=== PATIENT | male | born 2000 | race Hispanic/Latino ===

== ENCOUNTER 2024-02-27 09:11 | Day surgery (SDC) | payer BC ==
[2024-02-26 15:09] VITALS: BMI 27.1
[2024-02-27] MEDS ORDERED: PROPOFOL 20 ML ONE (12:21)
[2024-02-27] MEDS ORDERED: fentaNYL 50 mcg/mL 1 mL Vial ONE ×4 (12:22→16:01)
[2024-02-27] MEDS ORDERED: Lidocaine 1% PF 5 ML VIAL ONE (12:22)
[2024-02-27] MEDS ORDERED: Ondansetron PF 4 MG/2 ML Vial ONE (12:22)
[2024-02-27] MEDS ORDERED: Dexamethasone 4 mg/ml Vial ONE (12:22)
[2024-02-27] MEDS ORDERED: Rocuronium Bromide 10 MG/ML (10ML VIAL) ONE ×2 (12:22→13:20)
[2024-02-27] MEDS ORDERED: Lidocaine 1% w/Epinephrine 1:200K 30 ML VIAL ONE (12:53)
[2024-02-27] MEDS ORDERED: SUGAMMADEX SODIUM 200 MG/2 ML VIAL ONE ×2 (13:21→15:21)
[2024-02-27] MEDS ORDERED: Midazolam HCl 2 mg/2 ml Vial ONE (13:39)
[2024-02-27] MEDS ORDERED: CEFAZOLIN 1 GM VIAL ONE (14:08)
[2024-02-27] MEDS ORDERED: Hydrocodone-Acetamin 15 ML UDCUP ONE (16:49)
== END 2024-02-27 17:35 | disposition home or self-care (01) ==
LOC: CSHSDC 09:11
PROVIDERS: ATTEND Specialist
PROC: 0CB Mouth and Throat, Excision (ICD-10-PCS; principal; 2024-02-27)
PROC: 0CTH0ZZ Resection of Left Submaxillary Gland, Open Approach (ICD-10-PCS; principal; 2024-02-27)
DX: K11.22 Acute recurrent sialoadenitis (principal); K11.23 Chronic sialoadenitis; K11.6 Mucocele of salivary gland; Z79.899 Other long term (current) drug therapy
CPT/HCPCS: 88305; 88341; 88342; A6258; C1889; J0690; J1100; J2250; J2405; J2704; J3010